=== PATIENT | female | born 1965 | race American Indian/Alaskan Native ===

== ENCOUNTER 2017-01-19 15:14 | Emergency (ER) | payer SELFPAY ==
[2017-01-19 15:49] VITALS: BP 179/82
--- NOTE | 2017-01-19 16:28 | Cat Scan Report ---
FINAL REPORT EXAM: CT HEAD/BRAIN WO CON HISTORY: Headache TECHNIQUE: CT head without contrast PRIORS: None. FINDINGS: No acute intra-axial or extra-axial hemorrhage is identified. There is no evidence of midline shift or mass effect. The ventricles and sulci are within normal limits. East-white matter differentiation is intact. No acute parenchymal abnormalities seen. Bony calvarium is grossly intact. Mucosal thickening seen within the maxillary and ethmoid sinuses. IMPRESSION: Sinusitis which appears likely chronic No acute intracranial findings
[2017-01-19 16:54] LABS: INR 0.95 (0.87-1.13); Partial Thromboplastin Time 30.3 Sec. (24.2-36.6)
[2017-01-19 17:32] LABS: Alanine Aminotransferase 13 units/L (7-56); Albumin 4.4 g/dL (3.9-5); Albumin/Globulin Ratio 1.1 %; Alkaline Phosphatase 123 units/L (35-129); Anion Gap 18 mmol/L; Blood Urea Nitrogen 22 mg/dL (7-17); Calcium 9.4 mg/dL (8.4-10.2); Carbon Dioxide 26 mmol/L (22-30); Chloride 99.1 mmol/L (98-107); Glucose 232 mg/dL (65-100); Potassium 4.3 mmol/L (3.6-5.0); Sodium 139 mmol/L (137-145); Total Protein 8.4 g/dL (6.3-8.2)
== END 2017-01-19 22:00 | disposition left against medical advice (07) ==
LOC: ED 15:14
DX: R51 Headache (principal); Z53.21 Procedure and treatment not carried out due to patient leaving prior to being seen by health care provider
CPT/HCPCS: 36415; 70450; 80053; 82962; 84484; 85610; 85730